=== PATIENT | female | born 1995 | race Caucasian/White ===

== ENCOUNTER → 2019-01-24 | Outpatient (CLI) | payer BC ==
[~2019-01-24] MED LIST: ACHD5005 PO; ALB0.5V INH; ALBU8.5H2 IH; BIRTH CONTROL PO; RIVA10TA PO; no home meds
--- NOTE | 2019-01-24 13:57 | Diagnostic Imaging Report ---
Examination: Ultrasound pelvis Date: January 24, 2019. Indication: 23-year-old female, abnormal uterine bleeding. Comparison: CT abdomen and pelvis November 26, 2015.. Technique: A sonogram of the pelvis was performed utilizing transabdominal and endovaginal approaches assessing forte-scale appearance, spectral Doppler analysis, and color Doppler flow. Findings: The uterus measures 6.3 x 4.8 x 3.2 cm. No focal uterine masses are seen. The endometrium measures 0.7 cm in diameter. The right ovary measures 3.6 cm x 1.8 cm x 2.2 cm. The left ovary measures 2.6 cm x 1.5 cm x 1.7 cm. No adnexal lesion is seen. There is blood flow to both ovaries color Doppler and spectral Doppler analysis. There is a small amount of free pelvic fluid. Impression: 1. Small volume free pelvic fluid. 2. Unremarkable appearance of the ovaries and uterus. Dictated by: Dictated on workstation # [id number]
== END ==
LOC: RAD 11:57
PROVIDERS: ATTEND Obstetrics & Gynecology
DX: N94.4 Primary dysmenorrhea (principal); N93.8 Other specified abnormal uterine and vaginal bleeding; F41.9 Anxiety disorder, unspecified
CPT/HCPCS: 76830; 76856

== ENCOUNTER → 2021-10-26 | Outpatient (CLI) | payer BC ==
--- NOTE | 2021-10-26 15:45 | Diagnostic Imaging Report ---
INDICATION: anatomy survey. TECHNIQUE: Multiple Real-time grayscale images were obtained over the gravid uterus. COMPARISON: None. FINDINGS: A single live intrauterine is in the transverse position. The cervix measures approximately 6 cm in length. The placenta is posteriorly positioned and there is no previa. anatomy survey was performed and the following structures are seen and normal: Four-chamber heart, cerebellum, cisterna magna, lips/nose, umbilical cord insertion, urinary bladder, kidneys, and profile. The cerebral ventricles are symmetrically dilated compressing the cerebral hemispheres. spine is not well seen. Biometrical measurements are as follows: Biparietal 4.99 cm, age 21 weeks 1 days. Head circumference 18.27 cm, age 20 weeks 5 days. Abdominal circumference 15.35 cm, age 20 weeks 4 days. Femur length 3.37 cm, age 20 weeks 4 days. Sonographic estimate age: 20 weeks 6 days. Sonographic estimated date of delivery: 03/09/2022. Estimated Weight: 364 gm (+/- 53 gm). LMP percentile: 54%. heart rate: 155 beats per minute. number: 1 of 1. IMPRESSION: Severe hydrocephalus of the fetus. Recommend high-risk maternal medicine consultation. Dictated by: Dictated on workstation # [id number]
== END ==
LOC: RAD 10:00
PROVIDERS: ATTEND Obstetrics & Gynecology
DX: O33.6XX0 Maternal care for disproportion due to hydrocephalic fetus, not applicable or unspecified (principal); Z3A.00 Weeks of gestation of pregnancy not specified
CPT/HCPCS: 76805